=== PATIENT | female | born 1950 | race Caucasian/White ===

== ENCOUNTER 2016-10-09 16:27 | Outpatient (CLI) | payer MEDICARE, OTHER ==
[~2016-10-09 16:27] MED LIST: Iopamidol 370 76% 100 ML VIAL ONE
[2016-10-09 17:58] LABS: ALT (SGPT) 14 U/L (0-55); AST (SGOT) 20 U/L (5-34); Alkaline Phosphatase 103 U/L (40-150); Anion Gap 16 mmol/L (10-20); BUN (Urea Nitrogen) 10 mg/dL (9.8-20.1); Bilirubin, Total 1.2 mg/dL (0.2-1.2); Calc. Creatinine Clearance 0 mL/min (70-130); Calcium 9.7 mg/dL (7.8-10.44); Carbon Dioxide 25 mmol/L (23-31); Chloride 100 mmol/L (98-107); Estimated GFR-MDRD 75; Globulin 3.9 g/dL (2.4-3.5); Protein, Total 8.2 g/dL (5.8-8.1)
[2016-10-09 18:04] LABS: #Basophils 0.1 thou/uL (0.0-0.2); #Lymphocytes 2.9 thou/uL (1.20-3.40); #Monocytes 1.3 thou/uL (0.11-0.59); #Neutrophils 13.3 thou/uL (1.40-6.50); %Basophils 0.6 % (0.0-1.0); %Eosinophils 0.1 % (0.0-10.0); %Lymphocytes 16.6 % (21.0-51.0); %Monocytes 7.6 % (0.0-10.0); Hematocrit 41.3 % (36.0-47.0); Mean Platelet Volume 7.9 fL (7.4-10.4); Red Blood Cell (RBC) Count 4.49 mill/uL (4.20-5.40); White Blood Cell (WBC) Count 17.7 thou/uL (4.8-10.8)
[2016-10-09 22:17] LABS: Blood, Urine Trace (Negative); Glucose, Urine (Dipstick) Negative (Negative); Ketone, Urine Negative (Negative); Nitrite Negative (Negative); Protein, Urine (Dipstick) 30 mg/dL (Neg-Trace)
[2016-10-09 22:19] LABS: Bacteria/HPF Rare-Few HPF (None Seen); RBC/HPF 0-3 HPF (0-3); Squamous Epithelial 0-3 HPF (0-3); WBC/HPF 0-3 HPF (0-3)
--- NOTE | 2016-10-10 00:14 | CT ---
CT OF THE BRAIN WITHOUT AND WITH CONTRAST: COMPARISON: None. HISTORY: Left-sided weakness. The patient has a history of breast cancer in 1991 and again in 2007. TECHNIQUE: Multiple contiguous axial images were obtained in a CT of the brain without and with IV contrast. FINDINGS: There is an extraaxial enhancing mass in the left frontal region measuring 2.5 cm in size. Underlyi ng vasogenic edema is seen. This causes shift of the midline to the left. No downward herniation i s seen. The shift to the left is approximately 4-5 mm. There is no evidence of hydrocephalus, intracranial hemorrhage, or extraaxial fluid collection. The calvarium and overlying soft tissues are unremarkable. The visualized paranasal sinuses and mas toid air cells are well-aerated. IMPRESSION: Enhancing extra-axial mass in the right frontal region. This could represent a meningioma or a meta static lesion to the dura in the right frontal region. POS: SONYA
== END 2016-10-09 16:28 | disposition home or self-care (01) ==
LOC: NAVSJIPCSP 16:27
PROVIDERS: ATTEND Internal Medicine
DX: C50.919 Malignant neoplasm of unspecified site of unspecified female breast (principal); G81.94 Hemiplegia, unspecified affecting left nondominant side; I10 Essential (primary) hypertension
CPT/HCPCS: 70470; 80053; 81003; 81015; 84443; 85025

== ENCOUNTER → 2016-10-09 | Outpatient (CLI) | payer MEDICARE, OTHER | LOC: EDSTATUS 11:26 → NAV CT 16:27 → NAV LAB 16:41 → EDSTATUS 10-16 13:33 | PROVIDERS: ATTEND Internal Medicine | DX: G81.94 Hemiplegia, unspecified affecting left nondominant side (principal); R22.0 Localized swelling, mass and lump, head | CPT/HCPCS: 70470 ==